=== PATIENT | male | born 1995 | race Caucasian/White ===

== ENCOUNTER 2023-02-01 12:28 | Emergency (ER) | payer BC ==
[~2023-02-01] VITALS: Ht 170.2 cm; Wt 124.7 kg
--- NOTE | 2023-02-01 12:30 | NUR ---
PT BIB SELF FROM HOME WITH C/O SEVERE FOOT PAIN X 1 WK. PT STATES THE PAIN IS LOCATED ON THE 1,2, AND 3 TOE OF THE FOOT. PT DENIES ANY FALLS AND INJUIRES. HX - N/A. 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 SAFETY PRECAUTIONS AND COMFORT MEASURES IN PLACE. PENDING MD PEPE AND ORDERS.
--- NOTE | 2023-02-01 12:35 | NUR ---
DR. REES AT BEDSIDE EXAMINIG THE PT.
[2023-02-01 13:00] VITALS: BP_SYST 141
[2023-02-01 13:46] LABS: BASOPHILS # (AUTO) 0.1 K/uL (0.0-0.2); BASOPHILS % (AUTO) 0.6 % (0.0-2.0); EOSINOPHILS # (AUTO) 0.1 K/uL (0.0-0.4); EOSINOPHILS % (AUTO) 1.6 % (0.0-4.0); HEMATOCRIT 46.9 % (36-54); HEMOGLOBIN 16.2 g/dL (14.0-18.0); LYMPHOCYTES # (AUTO) 2.5 K/uL (1.0-5.5); LYMPHOCYTES % (AUTO) 29.3 % (20.5-51.5); MEAN CORPUSCULAR HEMOGLOBIN 31 pg (27-31); MEAN CORPUSCULAR HGB CONC 35 % (32-36); MEAN CORPUSCULAR VOLUME 89 fL (79.0-98.0); MONOCYTES # (AUTO) 0.5 K/uL (0.0-1.0); NEUTROPHILS # (AUTO) 5.4 K/uL (1.8-7.7); NEUTROPHILS % (AUTO) 62.5 % (40.0-70.0); PLATELET COUNT (AUTO) 250 K/uL (130-430); RED BLOOD CELL COUNT(AUTO) 5.29 MIL/uL (4.2-6.2); RED CELL DISTRIBUTION WIDTH 13.9 % (9.0-15.0); WHITE BLOOD COUNT (AUTO) 8.7 K/uL (4.8-10.8)
[2023-02-01] MEDS ORDERED: KETOROLAC TROMETHAMINE 60 MG/2 ML VIAL IM ONE (14:00)
[2023-02-01 14:03] LABS: CREATININE 0.89 mg/dL (0.55-1.30)
[2023-02-01 14:08] LABS: ALBUMIN 4.2 g/dL (3.4-4.8); TOTAL BILIRUBIN 0.8 mg/dL (0.0-1.0); URIC ACID 6.1 mg/dL (2.4-7.0)
[2023-02-01 14:34] LABS: C-REACTIVE PROTEIN QUANT 1.6 mg/dL (0-0.5)
[2023-02-01] MEDS ORDERED: TRAM50TA2 PO (15:22)
[2023-02-01] MEDS ORDERED: IBUP-1971 PO (15:22)
--- NOTE | 2023-02-01 15:40 | NUR ---
Note undone in ED - 02/01/23 at 1542 by [email or web address] PT BIB SELF FROM HOME WITH C/O SEVERE FOOT PAIN X 1 WK. PT STATES THE PAIN IS LOCATED ON THE 1,2, AND 3 TOE OF THE FOOT. PT DENIES ANY FALLS AND INJUIRES. HX - N/A. 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 SAFETY PRECAUTIONS AND COMFORT MEASURES IN PLACE. PENDING EVCOLE AND ORDERS.
--- NOTE | 2023-02-01 15:41 | NUR ---
Emilia patel in [facility] - 02/01/23 at [email or web address] REES AT BEDSIDE EXAMINIG THE PT.
--- NOTE | 2023-02-01 15:42 | NUR ---
PT MEDICALLY CLEARED FOR DISCHARGE. D/C INSTRUCTIONS GIVEN TO PT. PT TO FOLLOW-UP WITH PCP WITHIN 1-3 DAYS AND TO RETURN TO ED FOR WORSENING S/S. PT VERBALZIED UNDERSTANDING. PT AAX04, NAD, WRISTBAND REMOVED. PT AMBULATORY WITH STEADY GAIT. PT LEFT ED WITH ALL BELONGINGS.
[2023-02-01 16:01] VITALS: BP_SYST 121
== END 2023-02-01 15:42 | disposition home or self-care (01) ==
LOC: SED 12:28
DX: M77.41 Metatarsalgia, right foot (principal); M79.671 Pain in right foot; Z88.8 Allergy status to other drugs, medicaments and biological substances; Z79.899 Other long term (current) drug therapy
CPT/HCPCS: 99284; 80053; 84550; 85025; 85651; 86140; 36415; 73630; 96372; J1885

== ENCOUNTER 2024-03-02 14:49 | Emergency (ER) | payer BC ==
[~2024-03-02] VITALS: Ht 167.6 cm; Wt 124.7 kg
[~2024-03-02 14:49] MED LIST: IBUP-1971 PO; TRAM50TA2 PO
[2024-03-02 14:53] VITALS: BP_SYST 128; PULSE 92; RESP 18; TEMP 98.3; O2SAT 96
[2024-03-02 15:30] LABS: INFLUENZA TYPE A Negative (NEGATIVE); INFLUENZA TYPE B NEGATIVE (NEGATIVE)
[2024-03-02] MEDS ORDERED: ALBMDI INH (15:48)
[2024-03-02] MEDS ORDERED: PSEU30TA36 PO (15:48)
== END 2024-03-02 15:57 | disposition home or self-care (01) ==
LOC: SED 14:49
DX: J40 Bronchitis, not specified as acute or chronic (principal); R05.9 Cough, unspecified; Z91.018 Allergy to other foods; Z79.899 Other long term (current) drug therapy; Z20.822 Contact with and (suspected) exposure to COVID-19
CPT/HCPCS: 36415; 71045; 99284